=== PATIENT | female | born 1930 | race Caucasian/White ===

== ENCOUNTER 2016-07-25 14:27 | Emergency (ER) | payer MEDICARE, OTHER ==
--- NOTE | 2016-07-27 16:02 | ER ---
ADMIT: 07/25/2016 RM/LOC: ER [facility] MR#: [id number] [id number] PA[address]A ROJO I [address] [place] [address] Emergency Room Report SEX: F AGE: 86 : 1930 DATE: 07/25/2016 TIME: 1427 hours. Please refer to my T-sheet for complete H and P. HISTORY OF PRESENT ILLNESS: Briefly, the patient is an 86-year-old who comes in with back pain. She actually fell about 12 hours prior. She was at home. She could not sleep, so she was up without her oxygen playing computer games. She is normally supposed to be on 2-3 L and has severe hypoxia without her oxygen. She just had forgot it. She got up to go get something to eat out of the fridge. When she threw away the wrapper, she felt lightheaded and actually thinks she could have pass out, but she bumped her back. She was able to get up with the paramedics help and back to her oxygen and did not come in, but her back still hurt her. She just wants that checked out. She is having no other complaints. It hurts when she moves. She points to the middle of her back. PHYSICAL EXAMINATION: VITAL SIGNS: Her blood pressure here 151/69, pulse 88, respirations 16, temp 97.6, sat 95% on 3 L. GENERAL: She is no acute distress. HEENT: Grossly normal. LUNGS: Clear. HEART: Regular. CHEST: She has posterior chest wall pain just off center to the right. No crepitance. ABDOMEN: Soft. PELVIS: No pain with pelvic rock. EXTREMITIES: No bony prominence or tenderness. NEUROLOGIC: Alert and oriented. Nonfocal. EMERGENCY DEPARTMENT COURSE: EKG was sinus rhythm, rate 79, no changes. CBC ADMIT: 07/25/2016 RM/LOC: ER [facility] MR#: [id number] [id number] [address] ROJO [address] [place] [address] Emergency Room Report SEX: F AGE: 86 : 1930 normal except hemoglobin 11.5. Chemistries normal except BUN 33, glucose 211, and creatinine 1.8, which were stable for her. Troponin was negative. CT scan of her T-spine was negative and chest x-ray was negative. I gave her one 7.5/325 [place]. She felt better. I had a long discussion. I talked to Dr. Rojo. She is ready for discharge. ASSESSMENT: 1. Back contusion. 2. Fall with syncope. 3. Med noncompliance with not using her oxygen. PLAN: Follow up with Dr. Rojo. Return if worse. [place]. Rest and ice. Kevin Roy MD/ deonna JOB #: [id number] CC: Kevin Roy MD, Attending Physician UNKNOWN, Family Physician
== END 2016-07-25 17:30 | disposition home or self-care (01) ==
LOC: ER 14:27
DX: S20.221A Contusion of right back wall of thorax, initial encounter (principal); R55 Syncope and collapse; E11.9 Type 2 diabetes mellitus without complications; I10 Essential (primary) hypertension; Z88.5 Allergy status to narcotic agent; Z79.82 Long term (current) use of aspirin; Z79.4 Long term (current) use of insulin; Z79.899 Other long term (current) drug therapy; W17.89XA Other fall from one level to another, initial encounter; Y92.009 Unspecified place in unspecified non-institutional (private) residence as the place of occurrence of the external cause